=== PATIENT | female | born 1940 | race Caucasian/White ===

== ENCOUNTER 2020-03-02 07:08 | Inpatient (IN) | payer OTHER ==
[~2020-03-02] VITALS: Ht 149.9 cm; Wt 52.5 kg
[2020-03-02] MEDS ORDERED: SODIUM CHLORIDE 0.9% 1,000 ML IV ONE (08:36)
[2020-03-02] MEDS ORDERED: ALBUTEROL SULF 2.5 MG/0.5ML(0.5%) NEB SOLN NEB ONE ×2 (08:45→15:15)
[2020-03-02] MEDS ORDERED: IPRATROPIUM BROM 0.5 MG/2.5ML INH SOL NEB ONE ×2 (08:45→15:15)
--- NOTE | 2020-03-02 09:00 | NUR ---
HHN GIVEN WITH NO ADVERSE RX IN ER. RN MADE AWARE. AEROSOLIZING PROCEDURE IN PROCESS SIGN PLACED AT DOOR .
[2020-03-02 09:23] LABS: Basophils # (auto) 0 10 ^3/uL (0-0.2); Basophils % (auto) 0.4 % (0.0-2.0); Eosinophils # (auto) 0.1 10 ^3/uL (0-0.8); Lymphocytes # (auto) 1.3 10 ^3/uL (0.4-5.4); Monocytes # (auto) 0.7 10 ^3/uL (0-1.3)
[2020-03-02 09:26] LABS: Eosinophils % (auto) 1.2 % (0.0-7.0); Hematocrit 29.6 % (36.0-46.0); Hemoglobin 9.1 g/dL (12.2-16.2); Lymphocytes % (auto) 10.8 % (10.0-50.0); Mean Corpuscular Hemoglobin 23.5 pg (28.0-32.0); Mean Corpuscular Hgb Conc. 30.8 g/dL (32.0-36.0); Mean Corpuscular Volume 76.2 fL (80.0-100.0); Monocytes % (auto) 5.8 % (0.0-12.0); Neutrophils # (auto) 9.8 10 ^3/uL (1.6-8.6); Neutrophils % (auto) 81.8 % (37.0-80.0); Platelet Count (auto) 399 10^3/uL (140-450); Red Blood Cells 3.88 10^6/uL (4.0-5.20)
[2020-03-02 09:45] LABS: Albumin 3.2 g/dL (3.4-5.0); Calcium 8.2 mg/dL (8.5-10.1)
[2020-03-02 09:49] LABS: Bilirubin, Total 0.4 mg/dL (0.2-1.0); Total Protein 6.9 g/dL (6.4-8.2)
[2020-03-02 09:52] LABS: INR 1.13 (0.9-1.15); Partial Thromboplastin Time 24.2 sec (23.64-32.05)
[2020-03-02 10:23] LABS: Urine WBC None Seen /hpf (0 - 5)
[2020-03-02 10:33] LABS: Urine Bacteria NONE SEEN /hpf (None Seen); Urine Blood Negative /uL (Negative); Urine Hyaline Cast FEW /lpf (0 - 2); Urine Specific Gravity 1.018 (1.001-1.035)
[2020-03-02] MEDS ORDERED: HYDROcodone-ACET 5/325MG TAB PO ONE (12:15)
[2020-03-02] MEDS ORDERED: POTASSIUM EFFERVESENT TAB 25 MEQ PO ONE ×2 (13:45→14:30)
[2020-03-02] MEDS ORDERED: AZITHROMYCIN 500MG/ 250ML 250 ML IV ONE (13:45)
[2020-03-02] MEDS ORDERED: NITROGLYCERIN 0.4 MG SL TAB SL PRN ×3 (14:30→15:15)
[2020-03-02] MEDS ORDERED: MORPHINE SULF INJ 2 MG/ML SYRINGE 1ML IV PRN ×2 (14:30→15:15)
[2020-03-02] MEDS ORDERED: FUROSEMIDE 100 MG/10ML VIAL IV ONE (14:30)
[2020-03-02] MEDS ORDERED: POTASSIUM CHL 20MEQ/100ML 100 ML IV ONE (14:30)
[2020-03-02] MEDS ORDERED: ALUM & MAG HYDROX-SIMETH LIQ(MAALOX) 30 ML PO ONE (15:15)
[2020-03-02] MEDS ORDERED: LORazepam 0.5 MG TAB PO PRN (15:15)
[2020-03-02] MEDS ORDERED: ALBUTEROL SULF 2.5 MG/0.5ML(0.5%) NEB SOLN NEB PRN (15:15)
[2020-03-02] MEDS ORDERED: MORPHINE SULFATE 4 MG/ML SYR/VIAL IV PRN (15:15)
[2020-03-02] MEDS ORDERED: METOPROLOL TARTRATE 1MG/1ML-5ML VIAL IV PRN (15:15)
[2020-03-02] MEDS ORDERED: ACETAMINOPHEN 500 MG TAB PO PRN (15:15)
[2020-03-02] MEDS: cefTRIAXone 1GM/50ML D5W 50 ML IV SCH (15:20)
[2020-03-02] MEDS: ASPirin 81 mg TAB PO SCH (15:22)
--- NOTE | 2020-03-02 16:00 | NUR ---
[facility] FOR CONFIRMATION THAT THE SANCHEZ-19 TEST HAD BEEN COMPLETED. THE LABORATORY INFORMED ME THAT THEY HAD THE CULTURE AND WERE PROCESSING IT
[2020-03-02 16:17] VITALS: BP 148/68
[2020-03-02 16:20] LABS: Albumin 3.1 g/dL (3.4-5.0); Calcium 8.2 mg/dL (8.5-10.1); Magnesium 2.2 mg/dL (1.6-2.6); Potassium 3.2 mmol/L (3.5-5.1)
[2020-03-02 16:24] LABS: Bilirubin, Total 0.4 mg/dL (0.2-1.0)
[2020-03-02 16:40] LABS: CRP High Sensitivity 2.88 mg/dL (< 0.3)
[2020-03-02 16:57] VITALS: BP 159/79
[2020-03-02 17:07] LABS: BUN/Creatinine Ratio 18.4
[2020-03-02 17:26] VITALS: BP 159/79
[2020-03-02] MEDS ORDERED: IPRATROPIUM BROM 0.5 MG/2.5ML INH SOL NEB SCH (18:00)
[2020-03-02] MEDS: FUROSEMIDE 100 MG/10ML VIAL IV SCH (18:00)
--- NOTE | 2020-03-02 19:20 | NUR ---
Opening Shift Note Assumed care of patient, awake, alert and oriented x4, even and unlabored respirations on 2L oxygen via NC, so S/S of distress/SOB or pain. Patient able to turn in bed independently, bed in lowest locked position, side rails up x2, and call light within reach. Instructed on POC and to call for assist PRN, will continue to monitor for changes Q1hr and PRN.
[2020-03-02] MEDS: HYDROcodone-ACET 5/325MG TAB PO PRN (20:14)
[2020-03-02 21:13] LABS: Basophils # (auto) 0.1 10 ^3/uL (0-0.2); Basophils % (auto) 0.5 % (0.0-2.0); Eosinophils # (auto) 0.1 10 ^3/uL (0-0.8); Eosinophils % (auto) 0.8 % (0.0-7.0); Hematocrit 34.2 % (36.0-46.0); Hemoglobin 10.6 g/dL (12.2-16.2); Lymphocytes # (auto) 2.2 10 ^3/uL (0.4-5.4); Lymphocytes % (auto) 19.8 % (10.0-50.0); Mean Corpuscular Hgb Conc. 30.8 g/dL (32.0-36.0); Mean Corpuscular Volume 74.7 fL (80.0-100.0); Monocytes % (auto) 8.7 % (0.0-12.0); Neutrophils # (auto) 7.9 10 ^3/uL (1.6-8.6); Neutrophils % (auto) 70.2 % (37.0-80.0); Nucleated Red Blood Cells % 0.1 %; Platelet Count (auto) 495 10^3/uL (140-450); Red Blood Cells 4.58 10^6/uL (4.0-5.20); Red Cell Distribution Width 17.4 % (11.8-14.3); White Blood Cell 11.3 10^3/uL (4.4-10.8)
[2020-03-02 22:00] VITALS: BP 133/72
[2020-03-02] MEDS: SODIUM CHLOR 0.9% PF (SALINE LOCK) 10ML VIAL/SYR IV SCH (22:02)
[2020-03-02] MEDS: POTASSIUM EFFERVESENT TAB 25 MEQ PO SCH (22:03)
[2020-03-02] MEDS: CARVEDILOL 3.125 MG TAB PO SCH (22:03)
[2020-03-02] MEDS: ATORVASTATIN 20 MG TAB PO SCH (22:07)
[2020-03-02] MEDS: ALBUTEROL SULF HFA 90MCG INH 200DOSE IN SCH (23:03)
--- NOTE | 2020-03-02 23:03 | NUR ---
Respiratory note: ALBUTEROL GIVEN VIA MDI BY RN
[2020-03-03] MEDS: HYDROcodone-ACET 5/325MG TAB PO PRN ×3 (02:57→18:58)
[2020-03-03] MEDS: ALBUTEROL SULF HFA 90MCG INH 200DOSE IN SCH ×3 (06:15→21:10)
[2020-03-03 06:44] LABS: Basophils # (auto) 0.1 10 ^3/uL (0-0.2); Basophils % (auto) 0.7 % (0.0-2.0); Hemoglobin 10.4 g/dL (12.2-16.2); Monocytes # (auto) 0.9 10 ^3/uL (0-1.3)
[2020-03-03 06:47] LABS: Eosinophils # (auto) 0.5 10 ^3/uL (0-0.8); Hematocrit 32.9 % (36.0-46.0); Lymphocytes # (auto) 2.5 10 ^3/uL (0.4-5.4); Lymphocytes % (auto) 27.7 % (10.0-50.0); Mean Corpuscular Hemoglobin 23.6 pg (28.0-32.0); Mean Corpuscular Hgb Conc. 31.5 g/dL (32.0-36.0); Monocytes % (auto) 9.4 % (0.0-12.0); Neutrophils # (auto) 5.2 10 ^3/uL (1.6-8.6); Neutrophils % (auto) 57.2 % (37.0-80.0); Platelet Count (auto) 441 10^3/uL (140-450); Red Blood Cells 4.39 10^6/uL (4.0-5.20); Red Cell Distribution Width 17.5 % (11.8-14.3)
[2020-03-03] MEDS: FUROSEMIDE 100 MG/10ML VIAL IV SCH ×2 (06:50→17:57)
[2020-03-03] MEDS: SODIUM CHLOR 0.9% PF (SALINE LOCK) 10ML VIAL/SYR IV SCH ×3 (06:50→21:21)
[2020-03-03 06:57] LABS: INR 1.15 (0.9-1.15); Partial Thromboplastin Time 26.2 sec (23.64-32.05)
[2020-03-03 07:08] LABS: Ferritin 31.9 ng/mL (10-322); Folate (Folic Acid) 16.93 ng/mL (5.38-24)
--- NOTE | 2020-03-03 07:30 | NUR ---
Opening Shift Note RECEIVED REPORT FROM NOC RN. Assumed care of patient, awake and alert. PATIENT ON OXYGEN AT 3 LPM VIA NASAL CANNULA WITH no S/S of distress/SOB or pain. BED IN LOWEST, LOCKED POSITION WITH SIDERAILS UP x2 AND CALL LIGHT WITHIN REACH. Instructed on POC and to call for assist PRN, will continue to monitor for changes Q1hr and PRN.
[2020-03-03] MEDS: cefTRIAXone 1GM/50ML D5W 50 ML IV SCH (08:15)
[2020-03-03 08:43] LABS: % Iron Saturation 3.9 % (15-50)
[2020-03-03 08:44] LABS: Potassium 4.1 mmol/L (3.5-5.1)
[2020-03-03 09:00] LABS: Albumin 3.4 g/dL (3.4-5.0); Magnesium 2.4 mg/dL (1.6-2.6)
[2020-03-03 09:01] LABS: BUN/Creatinine Ratio 18.5
[2020-03-03 09:07] LABS: Bilirubin, Total 0.5 mg/dL (0.2-1.0); Phosphorus 2.7 mg/dL (2.5-4.90); Total Protein 7.7 g/dL (6.4-8.2)
[2020-03-03] MEDS ORDERED: CHOLECALCIFEROL (VITD3) 1,000IU=25mCg TAB PO SCH (10:00)
[2020-03-03] MEDS ORDERED: ZINC SULFATE 220mg CAP or TAB PO SCH (10:00)
[2020-03-03] MEDS ORDERED: ASCORBIC ACID 1,000 MG TAB PO SCH (10:00)
[2020-03-03] MEDS ORDERED: AZITHROMYCIN 500MG/ 250ML 250 ML IV SCH (10:00)
[2020-03-03 10:14] LABS: CRP High Sensitivity 3.25 mg/dL (< 0.3)
[2020-03-03] MEDS: ASPirin 81 mg TAB PO SCH (10:44)
[2020-03-03] MEDS: DOCUSATE SOD 100 MG CAP PO SCH (10:45)
[2020-03-03] MEDS: CARVEDILOL 3.125 MG TAB PO SCH ×2 (10:45→21:21)
[2020-03-03] MEDS: POTASSIUM EFFERVESENT TAB 25 MEQ PO SCH ×2 (10:45→21:20)
[2020-03-03] MEDS: AZITHROMYCIN 250 MG TAB PO SCH (10:47)
[2020-03-03] MEDS: LISINOPRIL 5 MG TAB PO SCH (10:47)
[2020-03-03] MEDS: ENOXAPARIN SOD 40 MG/0.4 ML SYRINGE SC SCH (10:48)
[2020-03-03] MEDS: ONDANSETRON HCL 4 MG/2 ML VIAL IV PRN ×2 (12:20→21:19)
--- NOTE | 2020-03-03 12:30 | NUR ---
REPORT CALLED TO DAMASO SPEAR.
--- NOTE | 2020-03-03 12:47 | NUR ---
PATIENT TRANSFERRED OUT OF [facility] TO [facility] WITH DAMASO SPEAR VIA WHEEL CHAIR.
--- NOTE | 2020-03-03 13:04 | NUR ---
1230 RECEIVED REPORT FROM SUSANNE PETIT AND TRANSPORTED PATIENT VIA WHEELCHAIR TO [facility]. PATIENT WAS MADE COMFORTABLE IN BED, CONNECTED TO 3L OXYGEN VIA NC. VS ARE WNL. PATIENT HAS NO COMPLIANTS AND NO QUESTIONS AT THIST TIME. BED IN LOW POSTITION, CALL LIGHT IN R
--- NOTE | 2020-03-03 13:10 | NUR ---
VS 97.0, HR 81, RR 18, 98/57, 96% 3L NC.
[2020-03-03 13:57] VITALS: BP 96/57
[2020-03-03 16:48] VITALS: BP 96/58
--- NOTE | 2020-03-03 18:48 | NUR ---
IV insertion IV access obtained, via clean sterile technique by inserting 22 gauge catheter at after attempt(s). IV secured properly. No trauma to site.
--- NOTE | 2020-03-03 19:30 | NUR ---
OPENING NOTE REPORT RECEIVED FROM ENMANUEL RN PATIENT IS A/OX4 RESTING COMFORTABLY IN BED. PATIENT DENIES ANY PAIN AT THIS TIME. PHYSICAL ASSESSMENT DONE-SEE INTERVENTIONS. ANTONY HANGING TO GRAVITY. TWO IV'S IN PLACE. IV TO LEFT AC INTACT AND PATENT, IV TO RIGHT FOREARM INTACT AND PATENT. POC DISCUSSED, ALL QUESTIONS ANSWERED. WILL MONITOR Q1H PRN THROUGHOUT SHIFT, CALL LIGHT WITHIN REACH.
--- NOTE | 2020-03-03 21:10 | NUR ---
Respiratory note: ALBUTEROL GIVEN BY MDI, HR 84, RR 16, SPO2 98% ON 2L NC.
[2020-03-03] MEDS: ATORVASTATIN 20 MG TAB PO SCH (21:20)
--- NOTE | 2020-03-03 21:52 | NUR ---
TELEPHONE ORDER SPOKE WITH DR.L. WILLSON REGARDING COVID PATIENT MEDICATIONS. SINCE PATIENT IS A NEGATIVE COVID PATIENT, ORDER RECEIVED TO D/C VITAMIN C AT THIS TIME. VERIFIED ORDER WITH MD. ORDER CARRIED OUT.
[2020-03-03 22:20] VITALS: BP 96/75
[2020-03-04] MEDS: ONDANSETRON HCL 4 MG/2 ML VIAL IV PRN ×2 (01:26→10:27)
[2020-03-04 03:07] LABS: RPR Non Reactive (Non Reactive)
[2020-03-04] MEDS: HYDROcodone-ACET 5/325MG TAB PO PRN ×3 (04:29→18:53)
--- NOTE | 2020-03-04 04:29 | NUR ---
PAIN PATIENT STATES HER PAIN IS AT 8/10 ON NUMERIC SCALE AND HER PAIN IS LOCATED AT HER LOWER BACK. PATIENT REQUESTED FOR NORCO TO BE GIVEN BECAUSE "THAT'S WHAT HELPS" NORCO ADMINISTERED ORDERED BY MD- SEE EMAR FOR DETAILS WILL REASSESS PAIN LEVEL IN ONE HOUR
[2020-03-04 05:10] VITALS: BP 126/51
--- NOTE | 2020-03-04 05:29 | NUR ---
PAIN REASSESSMENT PATIENT RATES PAIN LEVEL DOWN TO 2/10 NOW PATIENT STATES SHE IS COMFORTABLE
[2020-03-04] MEDS: FUROSEMIDE 100 MG/10ML VIAL IV SCH (05:58)
[2020-03-04] MEDS: SODIUM CHLOR 0.9% PF (SALINE LOCK) 10ML VIAL/SYR IV SCH ×3 (05:58→22:01)
[2020-03-04] MEDS: ALBUTEROL SULF HFA 90MCG INH 200DOSE IN SCH ×3 (06:00→22:01)
--- NOTE | 2020-03-04 06:50 | NUR ---
CLOSING PATIENT RESTING COMFORTABLY IN BED. NO S/S OF DISTRESS NOTED. CALL LIGHT WITHIN REACH. WILL ENDORSE CARE TO DAYSHIFT RN
--- NOTE | 2020-03-04 07:20 | NUR ---
OPENING SHIFT NOTE ASSUMED CARE OF PATIENT FROM DEAN OF INSTRUCTION DAMASO DAMIAN. PATIENT HAS NO S/S OF DISTRESS/SOB OR PAIN. INSTRUCTED PATIENT ON POC, PATIENT VERBALIZED UNDERSTANDING. BED IS IN LOWEST POSITION WITH SIDE RAILS RAISED X2, BED WHEELS LOCKED, ANTONY IS HANGING BELOW BLADDER AND IS DRAINING YELLOW URINE, AND CALL LIGHT IS WITHIN REACH. WILL CONTINUE TO MONITOR.
[2020-03-04 07:59] VITALS: BP 142/80
[2020-03-04 08:59] VITALS: BP 142/80
[2020-03-04] MEDS: AZITHROMYCIN 250 MG TAB PO SCH (09:10)
[2020-03-04] MEDS: ENOXAPARIN SOD 40 MG/0.4 ML SYRINGE SC SCH (09:10)
[2020-03-04] MEDS: ASPirin 81 mg TAB PO SCH (09:10)
[2020-03-04] MEDS: POTASSIUM EFFERVESENT TAB 25 MEQ PO SCH (09:10)
[2020-03-04] MEDS: LISINOPRIL 5 MG TAB PO SCH (09:11)
[2020-03-04] MEDS: DOCUSATE SOD 100 MG CAP PO SCH (09:12)
[2020-03-04] MEDS: cefTRIAXone 1GM/50ML D5W 50 ML IV SCH (09:28)
[2020-03-04] MEDS: CARVEDILOL 3.125 MG TAB PO SCH ×2 (09:30→22:00)
[2020-03-04 12:30] VITALS: BP 123/52
--- NOTE | 2020-03-04 12:55 | NUR ---
Dr. Toledo at bedside. MD to see patient. Per MD patient cleared from Cardiology aspect. No new orders received. Patient updated on POC. Will continue to monitor.
--- NOTE | 2020-03-04 14:00 | NUR ---
DR. WILLSON AT BEDSIDE UPDATED MD ON PATIENT'S STATUS. INFORMED MD OF D-DIMER LEVEL, MD IS AWARE AND WILL PUT IN NEW ORDERS. MD WANTS ARPAN TO BE DISCONTINUED.
[2020-03-04] MEDS ORDERED: IOHEXOL 350 MG/ML 100ML IJ ONE (16:14)
--- NOTE | 2020-03-04 16:29 | NUR ---
PATIENT TAKEN DOWN FOR CT SCAN VIA WHEELCHAIR. PATIENT HAS NO S/S OF DISTRESS/SOB OR PAIN AT THIS TIME.
--- NOTE | 2020-03-04 16:42 | NUR ---
PAGED REGARDING RECOMMENDATIONS FROM PHYSICAL THERAPY. AWAITING CALL BACK
[2020-03-04 16:58] VITALS: BP 104/45
--- NOTE | 2020-03-04 19:18 | NUR ---
CLOSING SHIFT NOTE ENDORSED CARE TO PROFILER OPERATOR DAMASO HOANG. PATIENT HAS NO S/S OF DISTRESS/SOB OR PAIN AT THIS TIME.
--- NOTE | 2020-03-04 19:25 | NUR ---
opening note pt watching tv in semi fowlers position in hospital bed, with HOB at 30 degrees respirations are even and non labored on 3Lnc. pt denies pain at this time. pt says she is comfortable at this time. bed in low locked position, call light within reach.
[2020-03-04] MEDS ORDERED: levoFLOXacin 500 MG TAB PO SCH (22:00)
[2020-03-04] MEDS: ATORVASTATIN 20 MG TAB PO SCH (22:01)
[2020-03-04 22:35] VITALS: BP 134/92
[2020-03-05] VITALS (7 sets, daily range): BP systolic 117–137; BP diastolic 62–70
--- NOTE | 2020-03-05 00:58 | NUR ---
pain pt c/o pain at lower back, chronic back pain from previous surgery. pt will be medicated at this time with norco 5
[2020-03-05] MEDS: HYDROcodone-ACET 5/325MG TAB PO PRN ×3 (01:04→21:14)
[2020-03-05] MEDS: SODIUM CHLOR 0.9% PF (SALINE LOCK) 10ML VIAL/SYR IV SCH ×3 (06:34→22:52)
--- NOTE | 2020-03-05 06:42 | NUR ---
closing note pt resting in semi fowlers w/ HOB elevated at 30 degrees. no s/s of pain or discomfort at this time. respirations are even and nonlabored on 3Lnc. bed is in low locked position, call light within reach.
--- NOTE | 2020-03-05 07:15 | NUR ---
OPENING SHIFT NOTE ASSUMED CARE OF PATIENT FROM CORK TIPPER DAMASO HOANG. PATIENT IS AWAKE AND ALERT X4. PATIENT HAS NO S/S OF DISTRESS/SOB OR PAIN. INSTRUCTED PATIENT ON POC, PATIENT VERBALIZED UNDERSTANDING. BED IS IN LOWEST POSITION WITH SIDE RAILS RAISED X2, BED WHEELS LOCKED, AND ANTONY IS HANGING BELOW BLADDER AND IS DRAINING YELLOW URINE, AND CALL LIGHT IS WITHIN REACH. WILL CONTINUE TO MONITOR
[2020-03-05] MEDS: ALBUTEROL SULF HFA 90MCG INH 200DOSE IN SCH ×2 (07:25→22:10)
--- NOTE | 2020-03-05 08:00 | NUR ---
BLADDER TRAINING STARTED
[2020-03-05] MEDS: ASPirin 81 mg TAB PO SCH (09:36)
[2020-03-05] MEDS: POTASSIUM EFFERVESENT TAB 25 MEQ PO SCH (09:36)
[2020-03-05] MEDS: ENOXAPARIN SOD 40 MG/0.4 ML SYRINGE SC SCH (09:36)
[2020-03-05] MEDS: levoFLOXacin 500 MG TAB PO SCH (09:36)
[2020-03-05] MEDS: FUROSEMIDE 40 MG TAB PO SCH (09:37)
[2020-03-05] MEDS: CARVEDILOL 3.125 MG TAB PO SCH ×2 (09:37→21:58)
[2020-03-05] MEDS: LISINOPRIL 5 MG TAB PO SCH (09:37)
[2020-03-05] MEDS: DOCUSATE SOD 100 MG CAP PO SCH (09:40)
[2020-03-05] MEDS: ONDANSETRON HCL 4 MG/2 ML VIAL IV PRN (09:54)
--- NOTE | 2020-03-05 10:51 | NUR ---
RECEIVED CALL FROM FERNANDO FROM [facility] REGARDING PATIENT'S TRANSPORTATION TO [facility]. PHONE NUMBER FOR FERNANDO IS PHONE NUMBER FOR [facility] ([facility]) . FAX NUMBER: WILL FAX INFORMATION TO [facility]
--- NOTE | 2020-03-05 11:55 | NUR ---
FAXED TRANSFER [facility]ACK[facility] AND ORDERS TO [facility]. AWAITING CALL BACK FOR BED ASSIGNMENT.
--- NOTE | 2020-03-05 15:30 | NUR ---
Ham catheter dc'd Order to discontinue ham catheter. Ham dc'd with clean technique following deflation of balloon. Patient tolerated well with no complaints of pain.
--- NOTE | 2020-03-05 16:39 | NUR ---
CALLED [facility] PER ANALYTICS ANALYST, THE ADMISSIONS WORKER HAS LEFT FOR THE DAY AND THEY WERE STILL PENDING A BED FOR PATIENT CALLED FERNANDO AT [facility] AND INFORMED HER WE ARE STILL WAITING FOR BED ASSIGNMENT. SHE IS AWARE.
--- NOTE | 2020-03-05 19:20 | NUR ---
opening note pt aox4. no s/s of pain or discomfort at this time. respirations are even and nonlabored on 3Lnc. bed in low locked position, call light within reach.
--- NOTE | 2020-03-05 19:25 | NUR ---
CLOSING SHIFT NOTE ENDORSED CARE TO TEXTILE SUPERVISOR DAMASO HOANG. PATIENT HAS NO S/S OF DISTRESS/SOB OR PAIN AT THIS TIME. WILL CONTINUE TO MONITOR.
--- NOTE | 2020-03-05 20:35 | NUR ---
PT assisted to bedside commode.
--- NOTE | 2020-03-05 21:08 | NUR ---
pain pt c/o pain at lower back, 05/27. pt will be medicated appropriately.
[2020-03-05] MEDS: ATORVASTATIN 20 MG TAB PO SCH (21:55)
--- NOTE | 2020-03-05 22:30 | NUR ---
Dr. Hyde called regarding bed assignment of PT at [facility]. Was informed that bed assignment is still pending.
--- NOTE | 2020-03-05 23:47 | NUR ---
pt up to bedside commode.
--- NOTE | 2020-03-06 03:54 | NUR ---
pt c/o pain at lower back area, about an 8/10. pt will be medicated upon next administration time of pain medication.
[2020-03-06] MEDS: HYDROcodone-ACET 5/325MG TAB PO PRN (04:00)
[2020-03-06 05:30] VITALS: BP 125/60
[2020-03-06] MEDS: SODIUM CHLOR 0.9% PF (SALINE LOCK) 10ML VIAL/SYR IV SCH (06:49)
--- NOTE | 2020-03-06 06:54 | NUR ---
closing note pt A&Ox4. respirations even and nonlabored on room air. pt denies pain or discomfort at this time. bed in low locked position, call light within reach.
--- NOTE | 2020-03-06 08:44 | NUR ---
CALLED [facility] AND SPOKE WITH FELICITY, SHE REPORTS SHE RECIEVED TRANSFER PAPERWORK AND PT SHOULD HAVE A BED TODAY. SHE WILL CALL BACK WHEN A BED IS AVAILABLE.
[2020-03-06 09:00] VITALS: BP 144/77
[2020-03-06] MEDS: POTASSIUM EFFERVESENT TAB 25 MEQ PO SCH (09:37)
[2020-03-06] MEDS: FUROSEMIDE 40 MG TAB PO SCH (09:38)
[2020-03-06] MEDS: DOCUSATE SOD 100 MG CAP PO SCH (09:38)
[2020-03-06] MEDS: LISINOPRIL 5 MG TAB PO SCH (09:39)
[2020-03-06] MEDS: levoFLOXacin 500 MG TAB PO SCH (09:40)
[2020-03-06] MEDS: CARVEDILOL 3.125 MG TAB PO SCH (09:40)
[2020-03-06] MEDS: ENOXAPARIN SOD 40 MG/0.4 ML SYRINGE SC SCH (09:40)
[2020-03-06] MEDS: ASPirin 81 mg TAB PO SCH (09:40)
--- NOTE | 2020-03-06 10:18 | NUR ---
CALLED FERNANDO AT [facility] TO CLARIFY IF THEY ARE PROVIDING TRANSPORTATION FOR PATIENT, NO ANSWER, LEFT MESSAGE, AWAITING CALL BACK.
--- NOTE | 2020-03-06 10:46 | NUR ---
SPOKE WITH DR BALBUENA, HE REPORTS TO OK PATIENT. HE REPORTS [facility] IS SETTING EVERYTHING UP WITH [facility]. PT HAS ALREADY BEEN CLEARED BY DR SUTHERLAND PER NURSES NOTES. WILL CALL [facility]. Addendum: 03/06/20 at 1048 by JOSE SCHULZ RN [phone] [facility]
--- NOTE | 2020-03-06 11:00 | NUR ---
SPOKE WITH [employer] CONSULTANT WILL, SHE REPORTS SHE DOESN'T KNOW THE RECEIVING MD AND DOESN'T KNOW IF THE PATIENT CAN HAVE [facility]ILY DRIVE [facility] DUE TO CO PAY OR WHICH AMBULANCE IS USED. CALLED [facility]IA IN CASE MANAGEMENT, NADIA REPORTS SHE WILL CALL WILL AT [facility] TO GET PATIENT SET UP, AND WILL CALL BACK. BOTH NOTIFIED PT USES 3L O2.
--- NOTE | 2020-03-06 11:54 | NUR ---
SPOKE WITH NADIA IN CASE MANAGEMENT, SHE REPORTS SHE IS WAITING ON ACCEPTING MD AND ROOM NUMBER. NADIA REPORTS THERE IS A 400 DOLLAR CO PAY FOR AMBULANCE, AND TO CALL PT FAMILY TO SEE IF THEY WANT THE AMBULANCE OR IF THEY WANT TO TRANSPORT HER. CALLED [facility] . H[facility]RY REPORTS HE DOES NOT WANT THE AMBULANCE AND REPORTS HE IS ABLE TO DRIVE PT TO [facility]. ASKED [facility]RY IF PATIENT HAS PORTABLE 02 FOR TRANSPORT, H[facility]RY REPORTS PATIENT DOES HAVE PORTABLE 02.
[2020-03-06 12:33] VITALS: BP 127/54
--- NOTE | 2020-03-06 13:52 | NUR ---
PAGED NADIA IN CASE MANAGEMENT, NADIA CALLED BACK. NOTIFIED [facility] PT IS ABLE TO TRANSPORT PATIENT AND HAS PORTABLE O2. [facility] AWARE. NADIA REPORTS PATIENT IS GOING TO [facility] ROOM 208 BED 2, DR JULIEN IS ACCEPTING MD. SHE REPORTS TO CALL [phone] TO GIVE REPORT.
--- NOTE | 2020-03-06 14:10 | NUR ---
PT CALLED, NOTIFIED HIM PT IS ACCEPTED AT [facility] AND PT IS GOING TO ROOM 208, BED 2. PT REPORTS TO CALL HIM WHEN PT IS READY FOR TRANSPORT.
[2020-03-06 14:23] VITALS: BP 127/54
--- NOTE | 2020-03-06 14:30 | NUR ---
CALLED PT TO NOTIFY HIM PT READY FOR TRANSPORT, AWARE.
--- NOTE | 2020-03-06 15:19 | NUR ---
CALLED DINA PETIT AND NOTIFIED HIM PATIENT IS PICKING HER UP NOW AND SHE WILL NEED A WHEEL CHAIR AND ASSISTANCE UPON ARRIVAL TO [facility]. SANGITA PERERA TRANSPORTING PATIENT TO [facility] VIA WHEEL CHAIR AND 02, NO DISTRESS NOTED.
--- NOTE | 2020-03-06 15:21 | NUR ---
Discharge instructions given as ordered. Encourage to follow up with PMD and Cardiology in one week as instructed. All questions and concerns addressed. Patient verbalized understanding. Medication reconciliation form completed and copy given to patient. IV removed with catheter intact, pressure dressing applied. Telemetry unit returned to ICU. Patient taken to vehicle via wheelchair with all personal belongings, accompanied by staff. No distress noted at time of departure.
--- NOTE | 2020-03-07 09:16 | NUR ---
Weekend chief construction inspector-03/06/20 2070 I received a page from nurse Cuba letting me know that there is an order for this patient to transfer to [facility]. I spoke with Lillie at [facility], patient will be going to room 208 bed 2, Dr. Luu accepting. Per Lillie-[facility] authorization number is [id number], but that patient has [id number]$ [id number] family will have to transport. Per nurse Spivey, patient's is agreeable to transport her to [facility], he will bring portable oxygen tank from home for transport.
== END 2020-03-06 15:15 | DRG 291 ==
LOC: ER 07:08 → EDBD 07:08 → TELE 07:09 → TELE-EAST 15:45 → TELE-WESTW 03-03 13:11
PROVIDERS: ADMIT Hospitalist; ATTEND Internal Medicine
DX: I13.0 Hypertensive heart and chronic kidney disease with heart failure and stage 1 through stage 4 chronic kidney disease, or unspecified chronic kidney disease (principal); I50.23 Acute on chronic systolic (congestive) heart failure; J18.9 Pneumonia, unspecified organism; J44.1 Chronic obstructive pulmonary disease with (acute) exacerbation; E44.0 Moderate protein-calorie malnutrition; J96.11 Chronic respiratory failure with hypoxia; R65.10 Systemic inflammatory response syndrome (SIRS) of non-infectious origin without acute organ dysfunction; E87.6 Hypokalemia; G62.9 Polyneuropathy, unspecified; D63.8 Anemia in other chronic diseases classified elsewhere; Z68.22 Body mass index [BMI] 22.0-22.9, adult; D50.9 Iron deficiency anemia, unspecified; D72.829 Elevated white blood cell count, unspecified; E78.5 Hyperlipidemia, unspecified; N18.9 Chronic kidney disease, unspecified; Z03.818 Encounter for observation for suspected exposure to other biological agents ruled out
CPT/HCPCS: 36415; 71045; 71275; 80053; 80061; 81001; 82533; 82607; 82728; 82746; 83036; 83540; 83550; 83605; 83615; 83735; 83880; 84100; 84132; 84443; 84484; 85025; 85045; 85379; 85610; 85652; 85730; 86141; 86592; 87040; 87070; 87804; 87880; 93005; 93306; 93970; 94640; 96365; 96367; 96375; 97163; G0378; J0696; J2405; J3480